=== PATIENT | male | born 1970 | race Two or more races ===

== ENCOUNTER 2024-05-03 08:49 | Outpatient (CLI) | payer OTHER | END 2024-05-03 08:50 | disposition home or self-care (01) | LOC: LAB.N 08:49 | PROVIDERS: ATTEND Urology | DX: R97.20 Elevated prostate specific antigen [PSA] (principal) | CPT/HCPCS: 36415; 84153; 84154 ==

== ENCOUNTER 2024-08-08 07:27 | Outpatient (CLI) | payer OTHER | END 2024-08-08 07:28 | disposition home or self-care (01) | LOC: LAB.N 07:27 | PROVIDERS: ATTEND Urology | DX: R97.20 Elevated prostate specific antigen [PSA] (principal) | CPT/HCPCS: 36415; 84153; 84154 ==